=== PATIENT | male | born 1985 ===

== ENCOUNTER 2021-06-26 13:47 | Outpatient (CLI) | payer OTHER ==
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
== END 2021-06-26 23:59 ==
LOC: DI.N 13:47
PROVIDERS: ATTEND Nurse Practitioner
DX: S29.9XXA Unspecified injury of thorax, initial encounter (principal)

== ENCOUNTER 2021-08-29 08:00 | Outpatient (CLI) | payer OTHER | END 2021-08-29 23:59 | LOC: LAB 08:00 | PROVIDERS: ATTEND Physician Assistant Medical | DX: U07.1 COVID-19 (principal) ==

== ENCOUNTER 2021-12-06 09:16 | Outpatient (CLI) | payer OTHER ==
--- NOTE | 2021-12-06 12:10 | XRAY Report ---
PROCEDURE: Ankle 3 View LT INDICATIONS: SPRAIN OF LIGAMENT OF L ANKLE TECHNIQUE: 3 views of the ankle were acquired. COMPARISON: None FINDINGS: Bones: No fractures or dislocations. Ankle mortise is normally aligned. No suspicious bony lesions . Soft tissues: No tibiotalar joint effusion. Achilles tendon appears normal. IMPRESSION: No fracture. No osseous lesion. If there are persistent symptoms or continued clinical concern for pa thology, then repeat plain film radiographs (7-10 days) or advanced imaging (CT, MR, bone scan) shoul d be considered for further evaluation. Reviewed by: Claire Krishna MD, PhD on 12/06/2021 12:08 PM PDT Approved by: Claire Krishna MD, PhD on 12/06/2021 12:08 PM PDT Station ID: [id number]
== END 2021-12-06 23:59 | disposition home or self-care (01) ==
LOC: DI.N 09:16
PROVIDERS: ATTEND Nurse Practitioner
DX: S93.402A Sprain of unspecified ligament of left ankle, initial encounter (principal)